=== PATIENT | female | born 1990 | race Caucasian/White ===

== ENCOUNTER → 2019-06-21 10:08 | Outpatient (CLI) | payer OTHER, SELFPAY ==
--- NOTE | 2019-06-21 | DI.US.S_ITS ---
PROCEDURE: US OB >= 14 WEEKS FETUS INDICATIONS: ANATOMY OUTSIDE/PRIOR DATING DATA: Last menstrual period (LMP): 01/21/19. LMP-based estimated date of delivery (CHIKI): 10/23/19. First dating scan (date and location): 06/21/19. Estimated date of delivery (CHIKI) from first dating scan: 10/25/19. TECHNIQUE: Real-time scanning was performed of the fetus, with image documentation and biometric measurements. Endovaginal scanning: No COMPARISON: None. FINDINGS: General: A single living intrauterine gestation is present. Presentation: Vertex. Placenta: Placental position is posterior, without previa. Amniotic fluid index: 13.0 cm, normal range is 5-24 cm. heart rate: 147 beats per minute. Maternal cervical canal: 3.6 cm long. Normal lower limit is 2.5 cm. biometrics: Biparietal diameter: 22 weeks Head circumference: 22 weeks Abdominal circumference: 21 weeks 3 days Femur length: 22 weeks 4 days Estimated gestational age from initial scan: not applicable. Composite gestational age from present scan: 22 weeks 0 days Estimated weight and percentile: 464 g; 65th percentile Measurement variability for biometric dating: +/- 7 days from 14 weeks to 15 weeks 6 days gestation, +/- 10 days from 16 weeks to 21 weeks 6 days gestation, +/- 2 weeks from 22 weeks to 27 weeks 6 days gestation, +/- 3 weeks for 28 weeks gestation or later. weight reference: 4500 g or EFW >90/95% is considered macrosomia or large for gestational age. EFW <10% is small for gestational age. EFW 5% or less is considered intra-uterine growth restriction. Anatomic survey: Neuro: Ventricles are non-dilated at less than 10 mm. Cisterna magna is normal at 3-11 mm. Cerebellum is normal in size and morphology. Nuchal skin fold: Normal at less than 6 mm between 14-21 weeks gestational age. Face: Nose and lips, facial profile are normal. Spine: No evidence for spina bifida. Heart: 4-chambered heart is present, with normal ventricular outflow tracts. Diaphragm: Diaphragm is intact. Stomach: Left-sided stomach is present. Kidneys: No hydronephrosis. Normal is less than 5 mm in 2nd trimester, less than 7 mm in 3rd trimester. Cord: 3-vessel cord has orthotopic insertion. Bladder: Normal in size. Extremities: All 4 extremities identified. IMPRESSION: 1. [place] living intrauterine at 22 weeks 0/7 days based on today's ultrasound. This is concordant with the LMP. 2. Normal placenta and amniotic fluid. 3. Normal and complete anatomic survey. Dictated by: Brian GARCIA Interpreted: Nazario Fay MD on 06/21/2019 at 13:13 Approved by: Nazario Fay M.D. on 06/21/2019 at 15:21
== END ==
PROVIDERS: Visit Provider Nurse Practitioner Obstetrics & Gynecology
DX: Z36.89 Encounter for other specified antenatal screening (principal); Z3A.22 22 weeks gestation of pregnancy
CPT/HCPCS: 76811

== ENCOUNTER → 2019-08-02 07:45 | Outpatient (CLI) | payer OTHER, SELFPAY ==
[2019-08-02 08:51] LABS: Hematocrit 38.3 % (36-46); Hemoglobin 13.6 g/dL (12.0-16.0); Mean Corpuscular HGB Conc 35.4 % (30-36); Mean Corpuscular Hemoglobin 32.7 PG (26-34); Mean Corpuscular Volume 92.5 fL (80-100); Platelet Count 242 X10^3/uL (150-400); Red Blood Cell Count 4.14 X10^6/uL (4.0-5.2); Red Cell Distribution Width 12.3 % (11.6-14.8); White Blood Cell Count 7.3 X10^3/uL (4.5-11.0)
[2019-08-02 09:18] LABS: Glucose Fasting 81 mg/dL (70-100)
[2019-08-02 11:20] LABS: Glucose 1 Hour 99 mg/dL (70-170)
[2019-08-02 11:21] LABS: Glucose 2 Hour 91 mg/dL (70-140); Glucose Tol Interpretation INTERPRETATION
== END ==
PROVIDERS: Visit Provider Nurse Practitioner Obstetrics & Gynecology
DX: Z13.1 Encounter for screening for diabetes mellitus (principal); Z34.02 Encounter for supervision of normal first pregnancy, second trimester
CPT/HCPCS: 36415; 82951; 82952; 85027

== ENCOUNTER 2019-09-30 06:41 | Outpatient (CLI) | payer OTHER, SELFPAY ==
[2019-09-30] MEDS: TERBUTALINE 1 MG/ML VIAL SUBCUT (07:30)
--- NOTE | 2019-09-30 11:36 | PM.PROC.1 ---
Procedures Date/Time Date of procedure: 09/30/19 Time of procedure: 07:45 General Procedure description: Patient is a G1 with known breech presentation at 36 weeks here for external cephalic version. NST was reactive. Consent form was signed with the risks of rupture of membranes, abruption of placenta, distress that could require urgent section, onset of labor. Ultrasound shows the in breech presentation with posterior placenta and adequate fluid. Patient received 0.25 mg subcu terbutaline. Attempt was made 3 times to turn the baby for about 30 seconds each time with monitoring of the heart rate was normal in between each attempt. After the failed attempts NST was performed for an hour and was normal. Patient was discharged home. Precautions reviewed with the patient to call if she has bleeding, abdominal pain, decreased movement, rupture membranes, onset of labor. She will be scheduled for a primary section. Complications: none
== END 2019-09-30 08:30 | disposition home or self-care (01) ==
LOC: LABOR 08:50 → OB 13:25
PROVIDERS: Referring Provider Nurse Practitioner Obstetrics & Gynecology; Visit Provider Nurse Practitioner Obstetrics & Gynecology
DX: O32.1XX0 Maternal care for breech presentation, not applicable or unspecified (principal); Z3A.36 36 weeks gestation of pregnancy
CPT/HCPCS: 59025; 59412; 96372; G0378; G0379

== ENCOUNTER 2019-10-07 09:42 | Outpatient (CLI) | payer OTHER, SELFPAY ==
[2019-10-07 10:15] LABS: Add Manual Diff / Slide Review NO; Basophils Absolute Auto 100 /uL (0-100); Basophils Percent Auto 0.8 % (0-2); Eosinophils Absolute Auto 200 /uL (0-450); Eosinophils Percent Auto 3.3 % (2-4); Hematocrit 41.1 % (36-46); Hemoglobin 14.4 g/dL (12.0-16.0); Lymphocytes Absolute Auto 1500 /uL (1100-4500); Lymphocytes Percent Auto 19.7 % (25-40); Mean Corpuscular Hemoglobin 32.5 PG (26-34); Mean Corpuscular Volume 92.6 fL (80-100); Monocytes Absolute Auto 500 /uL (0-900); Monocytes Percent Auto 6.7 % (3-14); Neutrophils Absolute Auto 5100 /uL (1500-7000); Neutrophils Percent Auto 69.5 % (50-75); Platelet Count 228 X10^3/uL (150-400); Red Blood Cell Count 4.44 X10^6/uL (4.0-5.2); Red Cell Distribution Width 12.8 % (11.6-14.8); White Blood Cell Count 7.4 X10^3/uL (4.5-11.0)
[2019-10-07 10:27] LABS: Aspartate Aminotransferase 26 IU/L (14-36); Blood Urea Nitrogen 9 mg/dL (7-17); Estimated Glomerular Filt Rate > 60.0 mL/min (>60); Uric Acid 3.8 mg/dL (2.5-6.2)
[2019-10-07 10:47] LABS: Creatinine Urine Random 21.7 mg/dL; Protein (Total) Urine Random 14 mg/dL (0-12); Protein Creatinine Ratio Urine 0.64 GRAM/24H
--- NOTE | 2019-10-07 11:27 | PM.OBTRLD ---
Visit Information Visit Information Date of evaluation: 10/07/19 Primary OB Provider: Lisy Pineda On-call OB Provider: Betty Higgins Comments/Additional reasons for admission: 29 YO @ 37wks based on LMP and early US w/ breech presentation and PCS scheduled 10/24/19. Here for evaluation of elevated BP in clinic (140's/80's-90's) at routine OB appointment. Vital Signs Vital Signs: BP 126/82, HR110, T36.9C Temporal PFSH Surgical History (Updated 12/19/17 @ 05:05 by Conversion Provider) History of third molar tooth extraction Family History (Updated 09/23/17 @ 00:00 by Conversion Provider) Grandmother Age: 84 Bone loss Mother Age: 60 High cholesterol Mental health problem Social History (Updated 10/07/19 @ 11:32 by Lisy Pineda CNM) marital status: household members: spouse lives independently: Yes housing: house pets and animals: Yes occupational status: employed Review of Systems Review of Systems Narrative: NO PINO, vision changes, RUQ pain or increased edema ROS: Yes All systems reviewed with the patient and are negative except as otherwise documented Exam Vital Signs (past 8 hours): Serial BPs 126/82, 138/83, 130/83, HR 110-114, T36.9C Uterus Location (Fundal Height): 34 Presentation: ashok breech Neuro General: alert, awake and oriented x3 DTR's: Rt Patellar: 2+ and Lt Patellar: 2+ Objective Labs Result Diagrams: 10/07/19 10:04 10/07/19 10:04 Labs: Laboratory Results - last 24 hr 10/07/19 10/07/19 10/07/19 09:55 10:04 10:04 WBC 7.4 RBC 4.44 Hgb 14.4 Hct 41.1 MCV 92.6 MCH 32.5 MCHC 35.0 RDW 12.8 Plt Count 228 Neut % (Auto) 69.5 Lymph % (Auto) 19.7 L [place] % (Auto) 6.7 Eos % (Auto) 3.3 Baso % (Auto) 0.8 Neut # (Auto) 5100 Lymph # (Auto) 1500 [place] # (Auto) 500 Eos # (Auto) 200 Baso # (Auto) 100 BUN 9 Creatinine 0.50 L Estimated GFR > 60.0 BUN/Creatinine Ratio 18.0 Uric Acid 3.8 AST 26 U Random Total Protein 14 H Urine Creatinine 21.7 Protein/Creatinin Ratio 0.64 Evaluation Evaluation Baseline heart rate: 145 Variability: Moderate (11-25) monitor accelerations: Present monitor decelerations: Absent Contraction Frequency (minutes): 0 Category of Tracing: I Laboratory results: Laboratory Tests 10/07/19 10/07/19 10/07/19 09:55 10:04 10:04 WBC 7.4 RBC 4.44 Hgb 14.4 Hct 41.1 MCV 92.6 MCH 32.5 MCHC 35.0 RDW 12.8 Plt Count 228 Neut % (Auto) 69.5 Lymph % (Auto) 19.7 L [place] % (Auto) 6.7 Eos % (Auto) 3.3 Baso % (Auto) 0.8 Neut # (Auto) 5100 Lymph # (Auto) 1500 [place] # (Auto) 500 Eos # (Auto) 200 Baso # (Auto) 100 BUN 9 Creatinine 0.50 L Estimated GFR > 60.0 BUN/Creatinine Ratio 18.0 Uric Acid 3.8 AST 26 U Random Total Protein 14 H Urine Creatinine 21.7 Protein/Creatinin Ratio 0.64 Comments: Reactive NST Diagnosis, Plan/Disposition Final Diagnosis (1) Proteinuria affecting in third trimester: Current Visit: No Status: Acute Problem details: Given normal serial BPs and remaining preeclampsia labs, recommend 24 hour urine protein to evaluate baseline proteinuria. Pt given supplies and instructions for 24 hour urine collection. Recommend repeat BP check in 3-4 days. RTC as previously scheduled. Reviewed labor sx, warning sx and when to call. Discharge to home.
== END 2019-10-07 11:33 | disposition home or self-care (01) ==
LOC: LABOR 11:02 → OB 10-24 11:43
PROVIDERS: PCP Nurse Practitioner Obstetrics & Gynecology; Referring Provider Nurse Practitioner Obstetrics & Gynecology; Visit Provider Nurse Practitioner Obstetrics & Gynecology
DX: O12.13 Gestational proteinuria, third trimester (principal); Z11.2 Encounter for screening for other bacterial diseases; O32.1XX0 Maternal care for breech presentation, not applicable or unspecified; Z3A.37 37 weeks gestation of pregnancy
CPT/HCPCS: 36415; 59025; 82570; 84156; 84450; 84550; 85025; 87081; G0378; G0379

== ENCOUNTER → 2019-10-07 12:28 | Outpatient (ROUT) | payer OTHER, SELFPAY | PROVIDERS: PCP Nurse Practitioner Obstetrics & Gynecology; Visit Provider Nurse Practitioner Obstetrics & Gynecology | DX: Z11.2 Encounter for screening for other bacterial diseases (principal) | CPT/HCPCS: 87081 ==

== ENCOUNTER → 2019-10-14 14:25 | Outpatient (CLI) | payer OTHER, SELFPAY ==
--- NOTE | 2019-10-14 14:54 | PM.OBTRLD ---
Visit Information Visit Information Date of evaluation: 10/14/19 Primary OB Provider: Lisy Pineda On-call OB Provider: Aranza Mcknight Comments/Additional reasons for admission: 29YO @ 38wks by LMP and early US presents for BP evaluation after elevated BPs of 150's/90's in clinic. Persistent breech lie w/ PC/S for breech scheduled 10/24/19 w/ . +FM and occasional, mild ctx. No VB, LOF, PINO, vision changes, RUQ pain Vital Signs Vital Signs: Initial BP 140/92 PFSH Surgical History History of third molar tooth extraction Family History Grandmother Age: 84 Bone loss Mother Age: 60 High cholesterol Mental health problem Social History marital status: household members: spouse lives independently: Yes housing: house pets and animals: Yes occupational status: employed Review of Systems Review of Systems ROS: Yes All systems reviewed with the patient and are negative except as otherwise documented Exam Vital Signs (past 8 hours): Repeat BP 142/88, HR 108 Objective Labs Result Diagrams: 10/14/19 15:10 10/14/19 15:10 Labs: Pr:CR-0.33 Evaluation Evaluation Baseline heart rate: 140 Variability: Moderate (11-25) monitor accelerations: Present monitor decelerations: Absent Contraction Frequency (minutes): 0 Uterine Contraction Intensity: Mild Category of Tracing: I Laboratory results: CE deferred, not indicated Diagnosis, Plan/Disposition Final Diagnosis (1) Preeclampsia: Current Visit: Yes Status: Acute (2) 38 weeks gestation of : Current Visit: Yes Status: Acute Plan/Disposition Plan: 1500- Consulted and notified her of GHTN w/ repeat labs pending. will discuss options for timing for C/S w/ OR and get back to me. 1505- PS/C for breech w/ GHTN scheduled tomorrow @ 1330, pt to arrive @ 1130. Pt notified by and myself. Informed consent obtained. Given no change in labs fro last week and BPs that trended down during triage, Dx of preeclampsia is made, but pt is stable for discharge to home overnight while awaiting tomorrow. Reviewed warning sx and reasons to come back sooner. Pre-op instructions given. OB Disposition: home
[2019-10-14 15:19] LABS: Add Manual Diff / Slide Review NO; Basophils Absolute Auto 0 /uL (0-100); Basophils Percent Auto 0.5 % (0-2); Eosinophils Absolute Auto 100 /uL (0-450); Hematocrit 39.6 % (36-46); Hemoglobin 13.7 g/dL (12.0-16.0); Lymphocytes Absolute Auto 2000 /uL (1100-4500); Lymphocytes Percent Auto 19.6 % (25-40); Mean Corpuscular HGB Conc 34.6 % (30-36); Mean Corpuscular Hemoglobin 32.1 PG (26-34); Monocytes Absolute Auto 600 /uL (0-900); Monocytes Percent Auto 6.1 % (3-14); Neutrophils Absolute Auto 7300 /uL (1500-7000); Neutrophils Percent Auto 72.8 % (50-75); Platelet Count 220 X10^3/uL (150-400); Red Blood Cell Count 4.26 X10^6/uL (4.0-5.2); Red Cell Distribution Width 12.5 % (11.6-14.8)
[2019-10-14 15:32] LABS: Aspartate Aminotransferase 24 IU/L (14-36); Blood Urea Nitrogen 11 mg/dL (7-17); Estimated Glomerular Filt Rate > 60.0 mL/min (>60); Uric Acid 3.8 mg/dL (2.5-6.2)
[2019-10-14 15:48] LABS: Creatinine Urine Random 42.2 mg/dL; Protein (Total) Urine Random 14 mg/dL (0-12); Protein Creatinine Ratio Urine 0.33 GRAM/24H
[2019-10-15] MEDS: LACTATED RINGERS 1,000 ML 42 ML IV ×2 (13:00→14:20)
[2019-10-15] MEDS: CEFAZOLIN 2 GM/100 ML FROZ.PIGGY IV (13:40)
[2019-10-15 14:38] VITALS: BP 106/66; PULSE 99; RESP 12; TEMP 36.1; O2SAT 100
--- NOTE | 2019-10-15 14:52 | SUR.OPER ---
Supine on Padded OR bed, head on pillow, safety belt at thigh, arms secured on padded arm boards at <90 degrees abduction. Bump under right buttock. Legs uncrossed with pillow under knees, gel pad to heels, tape over blanket to lower legs.
--- NOTE | 2019-10-15 14:53 | SUR.PHASEI ---
Report called to [place].
[2019-10-15 14:55] VITALS: PULSE 99; O2SAT 100
--- NOTE | 2019-10-15 14:56 | SUR.OPER ---
Viable female delivered at 1359. Cord blood and placenta sent with L&D nurse.
== END | disposition home or self-care (01) ==
LOC: LABOR 15:13 → OB 10-15 07:13
PROVIDERS: Specialist; PCP Nurse Practitioner Obstetrics & Gynecology; Referring Provider Nurse Practitioner Obstetrics & Gynecology; Visit Provider Nurse Practitioner Obstetrics & Gynecology
PROC: (CPT 59514; principal; 2019-10-15 13:30)
DX: O14.93 Unspecified pre-eclampsia, third trimester (principal); Z3A.38 38 weeks gestation of pregnancy
CPT/HCPCS: 36415; 59025; 82570; 84156; 84450; 84550; 85025; G0378; G0379

== ENCOUNTER 2019-10-15 11:31 | Inpatient (IN) | payer OTHER, SELFPAY ==
--- NOTE | 2019-10-15 12:41 | PM.OBHP.1 ---
OB HPI Date/Time Date of admission: 10/15/19 Date Patient Seen: 10/15/19 Time Patient Seen: 12:41 History of Present Condition Chief complaint: : 1 Para: 0 Estimated Date of Delivery: 10/28/19 Estimated Gestational Age (weeks): 38 Narrative: Gabbie Benitez is a 29 year old female admitted for primary section for breech presentation and preeclampsia Indications Operative indications ( section): breech presentation History of Present care: good care, initiated at week # (9), number of visits (10) and pounds weight gain (21) Dating criteria: LMP confirmed by 1st trimester US Ultrasounds: normal mid trimester US Obstetrical complications: preeclampsia Medical complications: none Preadmission Labs Blood type: A (+) positive -: Antibody screen: negative, GBS status: negative, HBsAG: negative, HIV: negative and RPR/VDLR: negative -: Chlamydia screen: not detected and Gonorrhea screen: not detected -: Rubella: immune HCAB: negative 1 hr GTT: 99 Evaluation Evaluation Baseline heart rate: 130 Variability: Moderate (11-25) monitor accelerations: Present monitor decelerations: Absent Contraction Frequency (minutes): 0 PFSH Medical History (Updated 10/14/19 @ 15:59 by Lisy Pineda CNM) 37 weeks gestation of (Inactive) Elevated BP without diagnosis of hypertension (Inactive) Surgical History History of third molar tooth extraction Social History marital status: household members: spouse lives independently: Yes housing: house pets and animals: Yes occupational status: employed Meds Home Medications and Allergies Home Medications Medication Instructions Recorded Confirmed Type fluticasone propionate [Flonase 1 spray INTRANASAL QDAY #1 bot 05/04/16 History Allergy Relief] Review of Systems Review of Systems Narrative: No current headaches, scotomata, epigastric pain. Good movement. No rupture membranes. ROS: Yes All systems reviewed with the patient and are negative except as otherwise documented Exam Vital Signs (past 8 hours): Blood pressure 133/78, pulse of 96, temperature 37.1? Narrative Exam Narrative: HEENT exam within normal limits. Lungs are clear to auscultation percussion. Heart is regular rate and rhythm no S3-S4 or murmurs. Abdomen is soft, nontender. Fetus is confirmed breech by ultrasound. Extremities without edema nontender. Assessment and Plan Assessment and Plan Assessment and Plan narrative: 38 week gestation with breech presentation and scheduled primary low-transverse section with mild preeclampsia signs and symptoms.
--- NOTE | 2019-10-15 12:56 | PM.PREOP ---
Pre-operative Note Interval Note History & Physical reviewed/Exam performed by Physician: Yes Changes to H&P: No
[2019-10-15 13:19] LABS: Add Manual Diff / Slide Review NO; Basophils Absolute Auto 0 /uL (0-100); Basophils Percent Auto 0.4 % (0-2); Eosinophils Absolute Auto 100 /uL (0-450); Eosinophils Percent Auto 0.7 % (2-4); Hematocrit 39.8 % (36-46); Hemoglobin 13.7 g/dL (12.0-16.0); Lymphocytes Absolute Auto 1600 /uL (1100-4500); Lymphocytes Percent Auto 15.3 % (25-40); Mean Corpuscular HGB Conc 34.5 % (30-36); Mean Corpuscular Hemoglobin 32.3 PG (26-34); Mean Corpuscular Volume 93.6 fL (80-100); Monocytes Absolute Auto 500 /uL (0-900); Monocytes Percent Auto 5.1 % (3-14); Neutrophils Absolute Auto 8100 /uL (1500-7000); Neutrophils Percent Auto 78.5 % (50-75); Platelet Count 216 X10^3/uL (150-400); Red Blood Cell Count 4.25 X10^6/uL (4.0-5.2); Red Cell Distribution Width 12.7 % (11.6-14.8); White Blood Cell Count 10.3 X10^3/uL (4.5-11.0)
--- NOTE | 2019-10-15 14:40 | PM.OP.1 ---
Operative Date/Time/Diagnoses Date of procedure: 10/15/19 Time of procedure: 14:40 Pre-op diagnosis: 38 week gestation with mild preeclampsia and breech presentation Post-op diagnosis: same Procedure & Clinicians Procedure: Primary low-transverse section Same procedure as scheduled: Yes Indications: Breech presentation with mild preeclampsia Surgeon: Renee Darden [place] Attendant: Nicole Rouse Click Yes if Unassisted: No Anesthesia Type: Spinal Operative Notes Findings: Normal tubes, ovaries, and uterus. Viable female , Apgars of 8, 9. Approximate weight 6 lb 9 oz Closure Type: primary Specimen(s): none sent Applied: catheter (Moon) Estimated Blood Loss (mL): 300 Blood products transfused: none Procedure in detail: The patient was brought to the operating room where she underwent a spinal for anesthesia. She was placed in a supine position with a left lateral tilt. A Moon catheter was placed. Pulsatile stockings were placed and functional throughout the case. 2 g of Ancef were given IV prior to the incision. Warming was in place. The patient was prepped and draped in usual sterile fashion. A low transverse incision was made with a scalpel and the incision was carried down to the fascial layer which was incised transversely with scissors. The midline attachments are superiorly and inferiorly. Some bleeding was controlled Bovie. The rectus muscles were in the midline and the peritoneal incision was made with no damage to internal structures. The peritoneum was incised and superiorly and inferiorly. Bladder blade was placed and a bladder flap was developed and the bladder held away from the lower uterine segment. An incision was made in the uterus with the scalpel and the incision was extended with stretching. The head was elevated out of the abdomen and with fundal pressure the baby was delivered. The was bulb suctioned for clear fluid and handed off to the warmer. Cord blood was collected. The placenta delivered spontaneously with traction. The uterus was cleaned with clean laps. The uterine incision was closed in 2 layers of 0 chromic suture the first a running locking layer the second an imbricating layer. The bladder peritoneum was repaired with 2-0 Polysorb suture. The gutters were cleaned of any remaining fluids and ovaries and tubes were observed to be normal. Adequate hemostasis was noted. The perineum was closed with 2-0 Polysorb suture. The fascia layer was closed with 0 Polysorb suture with 2 stitches. The incision was irrigated and adequate hemostasis noted. The incision was closed with interrupted 3-0 Polysorb sutures and then a subcuticular stitch of 4-0 Polysorb suture. Steri-Strips were placed. The uterus was massaged to remove any clots. The patient went to recovery room in good condition. Counts of instruments and sponges were correct. Complications: none Post-operative Condition: stable Disposition: other ( Center) Plan for aftercare: Routine post section. Monitor for worsening symptoms and signs of preeclampsia.
[2019-10-15] MEDS: LACTATED RINGERS 1,000 ML 100 ML IV (16:43)
[2019-10-15] MEDS: KETOROLAC 30 MG/ML VIAL IV ×2 (16:43→23:43)
[2019-10-15 17:14] VITALS: BP 128/79
[2019-10-16] MEDS: KETOROLAC 30 MG/ML VIAL IV (05:59)
[2019-10-16 07:20] LABS: Hematocrit 38.2 % (36-46); Hemoglobin 13.2 g/dL (12.0-16.0)
--- NOTE | 2019-10-16 09:00 | P.PNOB_ITS ---
Subjective - OB Subjective Patient comments: no complaints [place] baby status: doing well [place] feeding status: exclusively breast feeding Date Patient Seen: 10/16/19 Time Patient Seen: 08:00 Interval history: Patient is postoperative primary low-transverse section. She denies any headaches, scotomata, epigastric pain. She is ambulatory and tolerating regular diet. She is breast-feeding. Exam Vital Signs (past 8 hours): Blood pressure 119/74, pulse of 96, temperature 98.6? Narrative Exam Narrative: Abdomen is soft, nontender. Uterus is firm, U -1, nontender. Dressing is clean, dry, intact. Mild lochia. Extremities without edema and nontender. Objective Labs Result Diagrams: 10/16/19 06:30 Labs: Laboratory Results - last 24 hr 10/15/19 10/15/19 10/16/19 13:00 13:00 06:30 WBC 10.3 RBC 4.25 Hgb 13.7 13.2 Hct 39.8 38.2 MCV 93.6 MCH 32.3 MCHC 34.5 RDW 12.7 Plt Count 216 Neut % (Auto) 78.5 H Lymph % (Auto) 15.3 L [place] % (Auto) 5.1 Eos % (Auto) 0.7 L Baso % (Auto) 0.4 Neut # (Auto) 8100 H Lymph # (Auto) 1600 [place] # (Auto) 500 Eos # (Auto) 100 Baso # (Auto) 0 Blood Type A Positive Antibody Screen Negative Assessment & Plan Assessment and Plan (1) Delivery by section: Status: Acute Current Visit: Yes (2) Preeclampsia: Status: Acute Current Visit: Yes Plan day: 1 plan OB: routine care Comments: Patient is doing well post section day 1. No signs or symptoms of preeclampsia. Continue to monitor for signs and symptoms of preeclampsia. Routine post section care. Time Spent With Patient Time: Total time spent is greater than 50% in coordination of care (as documented) at patient's floor/unit and/or counseling patient: Time with patient: less than 15 minutes
[2019-10-16] MEDS: DOCUSATE 250 MG CAPSULE PO (09:22)
[2019-10-16] MEDS: ACETAMINOPHEN 325 MG TABLET 650 MG PO ×2 (12:38→20:16)
[2019-10-16] MEDS: IBUPROFEN 600 MG TABLET PO (18:58)
[2019-10-17] MEDS: IBUPROFEN 600 MG TABLET PO (03:27)
[2019-10-17] MEDS: ACETAMINOPHEN 325 MG TABLET 650 MG PO (03:28)
--- NOTE | 2019-10-17 07:50 | PM.OBDS.1 ---
Discharge Providers Provider Date of admission: 10/15/19 11:31 Discharge Date: 10/17/19 Primary care physician: Lisy Pineda CNM Consults: 10/15/19 16:30 Consult to Audiovisual Librarian Routine Comment: Discharge provider: Renee Darden MD Summary Hospital Course Date Patient Seen: 10/17/19 Time Patient Seen: 07:51 Procedures: Primary low-transverse section Hospital Course: Patient was admitted for section for breech presentation and mild preeclampsia. She did extremely well post section. Patient denies any headaches, scotomata, epigastric pain. She is urinating and ambulating well. She is passing gas. Her pain is under control. Peripartum Data Delivery Method: Section (Breech presentation) Procedures: Primary low-transverse section complications: none [place] 1: Gender: Female Disposition of : home Discharge Diagnosis (1) Delivery by section: Status: Acute (2) Preeclampsia: Status: Acute Status at Discharge Cognitive/behavioral status at discharge: oriented Functional status at discharge: independent ambulation Overall status at discharge: patient is progressing back to baseline Time Spent with Patient Time attestation: Total time spent providing and/or coordinating discharge services: Time spent: Less than 30 minutes Objective Labs Result Diagrams: 10/16/19 06:30 Exam Vital Signs (past 8 hours): Blood pressure 124/79, pulse of 90, temperature 98.4? Narrative Exam Narrative: Abdomen is soft, nontender. Uterus is firm, at U, nontender. Dressing is clean, dry, intact. Mild lochia. Extremities without edema and nontender. Discharge Plan Discharge Plan Patient Disposition: Home Discharge comment: Call for increasing headaches, scotomata, epigastric pain Discharge orders & Medications Prescriptions: New oxycodone-acetaminophen 5-325 mg Tablet 2 tab PO Q4HR PRN (Reason: Pain, Severe (7-10)) Qty: 20 RF: 0 Continued fluticasone propionate [Flonase Allergy Relief] 9.9 ML spray,suspension 1 spray Intranasal QDAY Qty: 1 RF: 0 Follow up/Referrals: Renee Darden MD [Physician] - 1 Week (Blood pressure and incision check) Lisy Pienda CNM [Primary Care Provider] - Diet/Activity/Treatments Diet: Regular Activity: Nothing in vagina or lifting over 20 lb for 4 weeks Skin/Wound/Dressing Care Report to your healthcare provider any signs of infection, such as:: chills, fever, increased pain and unusual redness Dressing: Leave dressing on until 1 week postop Discharge Data Primary Care Provider: Lisy Pineda
[2019-10-17 09:36] VITALS: BP 115/76; PULSE 80; RESP 18; TEMP 36.5
== END 2019-10-17 13:00 | disposition home or self-care (01) | DRG 788 ==
PROVIDERS: Admitting Provider Specialist; PCP Nurse Practitioner Obstetrics & Gynecology; Referring Provider Specialist; Visit Provider Specialist
DX: O32.1XX0 Maternal care for breech presentation, not applicable or unspecified (principal); Z3A.38 38 weeks gestation of pregnancy; Z37.0 Single live birth; O14.04 Mild to moderate pre-eclampsia, complicating childbirth
CPT/HCPCS: 36415; 59025; 59050; 59514; 82570; 84156; 84450; 84550; 85014; 85018; 85025; 86850; 86900; 86901; J0690; J1885; J2274; J2590

== ENCOUNTER → 2022-11-08 16:14 | Outpatient (CLI) | payer OTHER, SELFPAY ==
--- NOTE | 2022-11-08 | DI.US.S_ITS ---
PROCEDURE: US OB >= 14 WEEKS FETUS INDICATIONS: 20 WEEK ANATOMY OUTSIDE/PRIOR DATING DATA: Last menstrual period (LMP): 06/15/2022 LMP-based estimated date of delivery (CHIKI): 03/22/2023 First dating scan (date and location): Not applicable Estimated date of delivery (CHIKI) from first dating scan: Not applicable The calculations are made using the working CHIKI of 03/22/2023. TECHNIQUE: Real-time scanning was performed of the fetus, with image documentation and biometric measurements. Endovaginal scanning: Not indicated COMPARISON: [facility], OB >= 14 WEEKS FETUS, 06/21/2019, 10:27. FINDINGS: General: A single living intrauterine gestation is present. Presentation: Variable Placenta: Placental position is anterior, without previa. Amniotic fluid index: 17.4 cm, normal range is 5-24 cm. Single deepest vertical pocket is 5.8 cm. heart rate: 139 beats per minute. Maternal cervical canal: 4.9 cm long. Normal lower limit is 2.5 cm. biometrics: Biparietal diameter: 4.8 cm, 20 weeks, 3 days. Head circumference: 18.7 cm, 21 weeks, 0 day. Abdominal circumference: 16.4 cm, 21 weeks, 3 days. Femur length: 3.4 cm, 20 weeks, 4 days. Clinically estimated gestational age: 20 weeks, 6 days. Composite gestational age from present scan: 20 weeks, 6 days. Estimated weight and percentile: 394 grams, 54 percent. Anatomic survey: Neuro: Ventricles are non-dilated at less than 10 mm. Cisterna magna is normal at 3-11 mm. Cerebellum is normal in size and morphology. Nuchal skin fold: Normal at less than 6 mm between 14-21 weeks gestational age. Face: Nose and lips, facial profile are normal. Spine: No evidence for spina bifida. Heart: 4-chambered heart is present, with normal ventricular outflow tracts. Diaphragm: Diaphragm is intact. Stomach: Left-sided stomach is present. Kidneys: No hydronephrosis. Normal is less than 5 mm in 2nd trimester, less than 7 mm in 3rd trimester. Cord: 3-vessel cord has orthotopic insertion. Bladder: Normal in size. Extremities: All 4 extremities identified. IMPRESSION: 1. Single live intrauterine gestation with fetus in variable presentation. heart rate is 139 beats per minute. Normal amount of amniotic fluid. Normal growth. Estimated weight is at 54 percent. 2. Normal anatomic survey. We strive to produce accurate, complete, and clear reports of imaging services. To assist us in improving patient care, this report was composed using standard report templates and voice recognition software. Therefore, it may contain abnormal punctuation, insertions and/or omissions. Occasional wrong-word or sound-alike substitutions may occur. Though we review the report and make efforts to correct it, we do recommend that the report be read carefully in proper context to recognize any text inaccuracies. Dictated by: Fabio Borja M.D. on 11/08/2022 at 17:48 Approved by: Fabio Borja M.D. on 11/08/2022 at 17:50
== END ==
PROVIDERS: PCP Nurse Practitioner Obstetrics & Gynecology; Referring Provider Advanced Practice Midwife; Visit Provider Advanced Practice Midwife
DX: Z36.1 Encounter for antenatal screening for raised alphafetoprotein level (principal); O09.92 Supervision of high risk pregnancy, unspecified, second trimester; O09.212 Supervision of pregnancy with history of pre-term labor, second trimester; Z3A.20 20 weeks gestation of pregnancy
CPT/HCPCS: 76811

== ENCOUNTER 2024-08-05 14:36 | Observation (INO) | payer OTHER, SELFPAY ==
[2024-08-05] VITALS (15 sets, daily range): BP systolic 120–159; BP diastolic 57–84; PULSE 76–94; RESP 14–37; TEMP 36.4–36.5; O2SAT 95–100; BMI 41.0
[2024-08-05 15:33] LABS: Add Manual Diff / Slide Review NO; Basophils Absolute Auto 100 /uL (0-100); Basophils Percent Auto 0.8 % (0-2); Eosinophils Absolute Auto 100 /uL (0-450); Eosinophils Percent Auto 0.4 % (2-4); Hemoglobin 13.8 g/dL (12.0-16.0); Lymphocytes Absolute Auto 1900 /uL (1100-4500); Lymphocytes Percent Auto 14.4 % (25-40); Mean Corpuscular HGB Conc 33.7 % (30-36); Mean Corpuscular Hemoglobin 30.1 PG (26-34); Mean Corpuscular Volume 89.3 fL (80-100); Monocytes Absolute Auto 500 /uL (0-900); Neutrophils Absolute Auto 10600 /uL (1500-7000); Neutrophils Percent Auto 80.4 % (50-75); Platelet Count 323 X10^3/uL (150-400); Red Blood Cell Count 4.59 X10^6/uL (4.0-5.2); Red Cell Distribution Width 13.1 % (11.6-14.8); White Blood Cell Count 13.1 X10^3/uL (4.5-11.0)
[2024-08-05 15:52] LABS: Alanine Aminotransferase 38 IU/L (<35); Albumin 4.5 g/dL (3.5-5.0); Albumin Globulin Ratio 1.2 (1.0-2.8); Alkaline Phosphatase 72 U/L (38-126); Aspartate Aminotransferase 39 IU/L (14-36); BUN Creatinine Ratio 15.8 (6-22); Bilirubin Total 0.7 mg/dL (0.2-1.3); Blood Urea Nitrogen 9 mg/dL (7-17); Calcium 9.3 mg/dL (8.4-10.2); Carbon Dioxide 24 mmol/L (22-32); Chloride 104 mmol/L (98-107); Estimated Glomerular Filt Rate > 60 mL/min (>60); Globulin 3.7 g/dL (1.7-4.1); Glucose 117 mg/dL (70-100); HEMOLYSIS 15 (0-50); Lipase 60 U/L (23-300); Potassium 3.7 mmol/L (3.4-5.1); Sodium 136 mmol/L (137-145); Total Protein 8.2 g/dL (6.3-8.2)
[2024-08-05 16:15] LABS: Urine Volume 10mL (spun)
[2024-08-05 16:16] LABS: Bacteria Urine None Seen; Culture Indicated Urine Cult Not Indicated; Mucus Urine 1+ (Negative); RBC Urine 5-10/HPF (0-5/HPF); Squamous Epithelial Cell Urine None Seen (0-5/HPF); WBC Urine None Seen (0-5/HPF)
--- NOTE | 2024-08-05 18:31 | DI.CT.S_ITS ---
PROCEDURE: CT ABDOMEN PELVIS W CON INDICATIONS: Right-sided abdominal pain eval for appy TECHNIQUE: After the administration of intravenous contrast, axial sections acquired from the lung bases to the pubic symphysis. Coronal and sagittal reformats were performed. For radiation dose reduction, the following was used: automated exposure control, adjustment of mA and/or kV according to patient size. COMPARISON: None. FINDINGS: Image quality: Diagnostic. Lower Chest: No significant findings. ABDOMEN: Liver: No solid mass. Gallbladder: The gallbladder is distended, with a focally thickened wall. There is a stone at the neck of the gallbladder. Biliary ducts: No biliary dilation. Pancreas: No ductal dilation. Spleen: Size is within normal limits. Adrenal Glands: No adrenal nodules. Kidneys and Ureters: No hydronephrosis. No solid mass. No complex renal cystic lesion which requires follow up. Stomach and Bowel: Normal colonic caliber, without significant wall thickening. Normal appendix. Peritoneum: No abnormal intraperitoneal fluid. No free air. Ventral Wall: No significant ventral hernia. Small umbilical hernia containing fat. Abdominal Nodes: No retroperitoneal or mesenteric adenopathy by size criteria. Vessels: Aorta and inferior vena cava are normal in size. PELVIS: Pelvic Organs: Unremarkable. Bladder: No bladder wall thickening, accounting for underdistention. Pelvic Nodes: No enlarged lymph nodes. Miscellaneous: No inguinal hernias are seen. Bones: No aggressive osseous abnormality. IMPRESSION: The gallbladder is distended, with a focally thickened wall. There is a stone at the gallbladder neck. Findings are concerning for acute cholecystitis. Recommend surgical consultation. Normal appendix. Dictated by: Kris Ricardo M.D. on 08/05/2024 at 20:06 Approved by: Kris Ricardo M.D. on 08/05/2024 at 20:07
--- NOTE | 2024-08-05 18:31 | ED.GENADULT ---
HPI - General Adult General Chief complaint: Abdominal Pain Stated complaint: Bad middle stomach pain Time Seen by Provider: 08/05/24 17:57 Source: patient Mode of arrival: Ambulatory History of Present Illness HPI narrative: 33-year-old female who is here for evaluation of just under 24 hours of right-sided abdominal pain. States it does radiate to her back. Did have some loose stools which did not change her abdominal pain. Has urinated without issue and that did not change her abdominal pain either. No vaginal bleeding. Has had C-sections but no other abdominal surgeries. Some nausea but no vomiting. No fevers. Has not tried anything for the symptoms prior to arrival. It was worse with palpation. Not changed with eating. Related Data Home Medications Medication Instructions Recorded Confirmed fluticasone propionate 50 1 spray intranasal QDAY ##1 05/04/16 08/05/24 mcg/actuation nasal spray,suspension (Flonase Allergy Relief) levonorgestrel 0.15 mg-ethinyl 1 tab PO DAILY 08/05/24 08/05/24 estradiol 0.03 mg tablet (Altavera (28)) sertraline 100 mg tablet 100 mg PO BID 08/05/24 08/05/24 Allergies Allergy/AdvReac Type Severity Reaction Status Date / Time No Known Drug Allergies Allergy Verified 08/05/24 14:45 Review of Systems Review of Systems ROS Unobtainable: All systems reviewed & are unremarkable except as noted in HPI and below Patient History Medical History Depression Acute cholecystitis due to biliary calculus Preeclampsia Elevated BP without diagnosis of hypertension Surgical History History of third molar tooth extraction Family History Grandmother Age: 88 Bone loss Mother Age: 64 High cholesterol Mental health problem Social History marital status: household members: spouse lives independently: Yes housing: house pets and animals: Yes occupational status: employed Smoking Status: Never smoker alcohol intake: current Smoking Status: Never smoker Exam Initial Vital Signs Initial Vital Signs: Vital Signs Temperature 97.6 F 08/05/24 14:45 Pulse Rate 78 08/05/24 14:45 Respiratory Rate 17 08/05/24 14:45 Blood Pressure 137/82 08/05/24 14:45 Pulse Oximetry 99 08/05/24 14:45 Oxygen Delivery Method Room Air 08/05/24 14:45 Const General: cooperative, comfortable and No ill appearing [facility] Head: normal to inspection and normocephalic Resp Effort & Inspection: normal respiratory effort Auscultation: clear to auscultation bilaterally Cardio Rate: regular rate Rhythm: regular rhythm GI Inspection: normal to inspection and non-distended Palpation: No firm, No guarding and tender Skin General: no rashes or lesions noted Neuro General: patient alert, patient awake and moves all extremities Course Orders Ordered: ED Orders 08/05/24 18:31 CT abdomen pelvis w con Stat 08/05/24 20:23 Consult to General Surgery Stat Acetaminophen (Acetaminophen 325 Mg Tablet) 650 mg PO Q6H [facility] Last Admin: 08/05/24 22:32 Dose: 650 mg Documented By: WB Lactated Ringer's (Lactated Ringers) 1,000 mls @ 21 mls/hr IV CONT [facility] Last Admin: 08/05/24 22:36 Dose: 21 mls/hr Documented By: WB Ibuprofen (Ibuprofen 400 Mg Tablet) 800 mg PO Q8HR [facility] Last Admin: 08/05/24 22:32 Dose: 800 mg Documented By: WB Morphine Sulfate (Morphine 2 Mg/Ml Inj) 2 mg IV Q4HR PRN PRN Reason: Pain, Moderate (4-6) Ondansetron HCl (Ondansetron 4 Mg/2 Ml Inj) 4 mg IV NOW PRN PRN Reason: Nausea And Vomiting Ondansetron HCl (Ondansetron 4 Mg Odt) 4 mg PO NOW PRN PRN Reason: Nausea And Vomiting Ondansetron HCl (Ondansetron 4 Mg/2 Ml Inj) 4 mg IV Q6HR PRN PRN Reason: Nausea And Vomiting Sertraline HCl (Sertraline 50 Mg Tablet) 200 mg PO BEDTIME [facility] Last Admin: 08/05/24 22:33 Dose: 100 mg Documented By: WB Tizanidine HCl (Tizanidine 4 Mg Tablet) 4 mg PO BEDTIME [facility] Last Admin: 08/05/24 22:33 Dose: 4 mg Documented By: WB Discontinued Medications Piperacillin Sod/Tazobactam (Sod 4.5 gm/ Sodium Chloride) 100 mls @ 200 mls/hr IV NOW ONE Stop: 08/05/24 20:24 Last Infusion: 08/05/24 21:12 Dose: Infused Documented By: Admin: 08/05/24 20:34 Dose: 200 mls/hr Documented By: Cefazolin Sodium/Dextrose (Ancef) 100 mls @ 200 mls/hr IV NOW ONE Stop: 08/05/24 21:27 Last Infusion: 08/05/24 22:25 Dose: Infused Documented By: Infusion: 08/05/24 22:17 Dose: 200 mls/hr Documented By: Admin: 08/05/24 21:53 Dose: 200 mls/hr Documented By: ANDREEA Ketorolac Tromethamine (Ketorolac 30 Mg/Ml Vial) 15 mg IV NOW ONE Stop: 08/05/24 18:32 Last Admin: 08/05/24 18:40 Dose: 15 mg Documented By: Vital Signs Vital signs: Vital Signs - 8 hr 08/05/24 17:45 08/05/24 17:47 08/05/24 17:47 Pulse Rate 88 80 Respiratory Rate 14 Blood Pressure 159/73 H Pulse Oximetry 99 99 08/05/24 18:00 08/05/24 18:00 08/05/24 18:43 Pulse Rate 80 80 Respiratory Rate 16 20 Blood Pressure 157/84 H Pulse Oximetry 100 99 08/05/24 18:44 08/05/24 18:44 08/05/24 19:06 Pulse Rate 80 89 Respiratory Rate 18 24 Blood Pressure 143/75 H Pulse Oximetry 100 95 08/05/24 19:30 08/05/24 20:00 08/05/24 20:30 Pulse Rate 85 84 88 Respiratory Rate 27 H 21 37 H Blood Pressure Pulse Oximetry 97 97 97 Medical Decision Making Medical Records Medical records reviewed: Yes I reviewed the patient's medical records. Lab Data Lab results reviewed: Yes I reviewed the patient's lab results. 08/05/24 15:18 08/05/24 15:18 Labs: Lab Results 08/05/24 Range/Units 15:18 WBC 13.1 H (4.5-11.0) X10^3/uL RBC 4.59 (4.0-5.2) X10^6/uL Hgb 13.8 (12.0-16.0) g/dL Hct 41.0 (36-46) % MCV 89.3 (80-100) fL MCH 30.1 (26-34) PG MCHC 33.7 (30-36) % RDW 13.1 (11.6-14.8) % Plt Count 323 (150-400) X10^3/uL Neut % (Auto) 80.4 H (50-75) % Lymph % (Auto) 14.4 L (25-40) % [place] % (Auto) 4.0 (3-14) % Eos % (Auto) 0.4 L (2-4) % Baso % (Auto) 0.8 (0-2) % Neut # (Auto) 17272 H (7191-0499) /uL Lymph # (Auto) 1900 (8247-0956) /uL [place] # (Auto) 500 (0-900) /uL Eos # (Auto) 100 (0-450) /uL Baso # (Auto) 100 (0-100) /uL Sodium 136 L (137-145) mmol/L Potassium 3.7 (3.4-5.1) mmol/L Chloride 104 (98-107) mmol/L Carbon Dioxide 24 (22-32) mmol/L BUN 9 (7-17) mg/dL Creatinine 0.57 (0.52-1.04) mg/dL Estimated GFR > 60 (>60) mL/min BUN/Creatinine Ratio 15.8 (6-22) Glucose 117 H (70-100) mg/dL Calcium 9.3 (8.4-10.2) mg/dL Total Bilirubin 0.7 (0.2-1.3) mg/dL AST 39 H (14-36) IU/L ALT 38 H (<35) IU/L Alkaline Phosphatase 72 (38-126) U/L Total Protein 8.2 (6.3-8.2) g/dL Albumin 4.5 (3.5-5.0) g/dL Globulin 3.7 (1.7-4.1) g/dL Albumin/Globulin Ratio 1.2 (1.0-2.8) Lipase 60 (23-300) U/L Urine RBC 5-10/hpf H (0-5/HPF) Urine WBC None seen (0-5/HPF) Ur Squamous Epith Cells None seen (0-5/HPF) Urine Bacteria None seen (None) Urine Mucus 1+ H (Negative) Ur Culture Indicated? Cult not indicated Vol Urine Centrifuged 10ml (spun) Point of Care Testing Test Results Negative Urine Dip Bedside Urine Glucose Negative Bedside Urine Bilirubin - Negative Bedside Urine Ketone ++ 40 Urine Specific [place] 1.010 Bedside Urine Occult Blood ++ Bedside Urine pH 6.5 Bedside Urine Protein + 30 Bedside Urine Urobilinogen - Negative Bedside Urine Nitrite - Negative Bedside Urine Leukocytes - Negative Esterase Point of care testing: Point of Care Testing Test Results Negative Urine Dip Bedside Urine Glucose Negative Bedside Urine Bilirubin - Negative Bedside Urine Ketone ++ 40 Urine Specific [place] 1.010 Bedside Urine Occult Blood ++ Bedside Urine pH 6.5 Bedside Urine Protein + 30 Bedside Urine Urobilinogen - Negative Bedside Urine Nitrite - Negative Bedside Urine Leukocytes - Negative Esterase Imaging Data CT scan - abdomen/pelvis: Radiologist's Impression: PROCEDURE:? CT ABDOMEN PELVIS W CON ? INDICATIONS:? Right-sided abdominal pain eval for appy ? TECHNIQUE:?? After the administration of intravenous contrast, axial sections acquired from the lung? bases to the pubic symphysis.? Coronal and sagittal reformats were performed.? For? radiation dose reduction, the following was used:? automated exposure control, adjustment? of mA and/or kV according to patient size.?? ? COMPARISON:? None. ? FINDINGS:?? Image quality:? Diagnostic.?? ? Lower Chest: No significant findings. ? ABDOMEN: Liver: No solid mass.? Gallbladder:? The gallbladder is distended, with a focally thickened wall.? There is a? stone at the neck of the gallbladder.?? Biliary ducts:? No biliary dilation.? Pancreas:? No ductal dilation.? Spleen:? Size is within normal limits.? Adrenal Glands:? No adrenal nodules.? Kidneys and Ureters:? No hydronephrosis. No solid mass. No complex renal cystic lesion? which requires follow up. ? Stomach and Bowel:? Normal colonic caliber, without significant wall thickening.? Normal? appendix. Peritoneum:? No abnormal intraperitoneal fluid.? No free air.? ? Ventral Wall:? ?No significant ventral hernia. Small umbilical hernia containing fat. Abdominal Nodes:? No retroperitoneal or mesenteric adenopathy by size criteria.? Vessels:? Aorta and inferior vena cava are normal in size.? ? PELVIS: Pelvic Organs:? Unremarkable.? Bladder:? No bladder wall thickening, accounting for underdistention.? Pelvic Nodes: No enlarged lymph nodes.? Miscellaneous: No inguinal hernias are seen.? ? Bones:? No aggressive osseous abnormality.? IMPRESSION:?? ? The gallbladder is distended, with a focally thickened wall.? There is a stone at the? gallbladder neck.? Findings are concerning for acute cholecystitis.? Recommend surgical? consultation. ? Normal appendix.?? MDM Narrative Medical decision making narrative: Patient had more generalized abdominal discomfort which is why started with a CT scan. She does have a slight elevation in her LFTs but bilirubin is unremarkable. Has a slight leukocytosis as well. CT scan concerning for an acute cholecystitis. Discussed the case with Dr. Barton general surgeon on-call who evaluated the patient in the emergency department. Plan will be to admit to the hospital for discussions cholecystectomy. Antibiotics started in the emergency department. Discharge Plan Departure Patient Disposition: Admitted as Observation Clinical Impression: Acute cholecystitis Admit Date/Time: 08/05/24 20:47 Admit Provider: Porter Barton
[2024-08-05] MEDS: KETOROLAC 30 MG/ML VIAL 15 MG IV (18:40)
--- NOTE | 2024-08-05 19:46 | PC.NURSE ---
Pt reports feeling 3/10 pain to abdomen. Smiling and sitting up in gurney.
[2024-08-05] MEDS: PIPERACILLIN/TAZO 4.5 GM in SODIUM CHLORIDE 0.9% 100 ML IV (20:34)
--- NOTE | 2024-08-05 20:51 | P.HP_ITS ---
History of Present Illness History of Present Illness Date Patient Seen: 08/05/24 Time Patient Seen: 20:51 Date of Onset of Symptoms: 08/05/24 Chief complaint: Bad middle stomach pain Narrative: 33 yo WF presents with 12 hours of right upper quadrant pain. Her pain worsened to the point that she needed to take a ferry to the ER. She does not recall any food out of the ordinary that started her pain. She denies jaundice or pancreatitis. She has a leukocytosis, CT scan showing stones and GB wall thickening. Iv pain medication in the ER improved her pain, somewhat. She has a toddler at home and had a . [facility] Medical History (Updated 08/05/24 @ 20:55 by Porter Barton MD) Depression Acute cholecystitis due to biliary calculus Preeclampsia Elevated BP without diagnosis of hypertension Surgical History History of third molar tooth extraction Family History Grandmother Age: 88 Bone loss Mother Age: 64 High cholesterol Mental health problem Social History marital status: household members: spouse lives independently: Yes housing: house pets and animals: Yes occupational status: employed Smoking Status: Never smoker Meds Home Medications and Allergies Home Medications Medication Instructions Recorded Confirmed Type fluticasone propionate 50 1 spray intranasal QDAY ##1 05/04/16 10/25/19 History mcg/actuation nasal spray,suspension (Flonase Allergy Relief) Allergies Allergy/AdvReac Type Severity Reaction Status Date / Time No Known Drug Allergies Allergy Verified 08/05/24 14:45 Review of Systems Review of Systems ROS: Yes All systems reviewed with the patient and are negative except as otherwise documented Constitutional Constitutional: Reports system reviewed and no additional complaints, except as documented Eyes Eyes: Reports system reviewed and no additional complaints, except as documented ENT Ears, Nose, Mouth, and Throat: Yes system reviewed and no additional complaints, except as documented Cardiovascular Cardiovascular: Reports system reviewed and no additional complaints, except as documented Respiratory Respiratory: Reports system reviewed and no additional complaints, except as documented Gastrointestinal Gastrointestinal: Reports abdominal pain, Denies constipation and Denies loose stools Genitourinary Genitourinary: Reports system reviewed and no additional complaints, except as documented Musculoskeletal Musculoskeletal: Reports system reviewed and no additional complaints, except as documented Integumentary/Breasts Skin/Breast: Reports system reviewed and no additional complaints, except as documented Neurologic Neurologic: Reports system reviewed and no additional complaints, except as documented Psychiatric Psychiatric: Reports system reviewed and no additional complaints, except as documented Endocrine Endocrine: Reports system reviewed and no additional complaints, except as documented Hematologic/Lymphatic Hematologic/Lymphatic: Reports system reviewed and no additional complaints, except as documented Allergic/Immunologic Allergic/Immunologic: Reports system reviewed and no additional complaints, except as documented Exam Vital Signs (past 8 hours): - 08/05/24 14:45 08/05/24 17:45 08/05/24 17:47 Temperature 97.6 F Pulse Rate 78 88 Respiratory Rate 17 Blood Pressure 137/82 159/73 H Pulse Oximetry 99 99 Oxygen Delivery Method Room Air 08/05/24 17:47 08/05/24 18:00 08/05/24 18:00 Temperature Pulse Rate 80 80 Respiratory Rate 14 16 Blood Pressure 157/84 H Pulse Oximetry 99 100 Oxygen Delivery Method 08/05/24 18:43 08/05/24 18:44 08/05/24 18:44 Temperature Pulse Rate 80 80 Respiratory Rate 20 18 Blood Pressure 143/75 H Pulse Oximetry 99 100 Oxygen Delivery Method Oxygen Delivery Method Room Air Narrative Exam Narrative: Gen: NAD, sitting comfortably in bed, appears well HEENT: Sclera are anicteric, head is normocephalic and atraumatic, trachea is midline. CV: RRR, no JVD Resp: clear to auscultation bilaterally, equal chest wall movement bilaterally Abd: soft, nontender, normoactive bowel sounds Ext: no edema, full range of motion Neuro: Cranial nerves II-XII grossly intact, no focal deficits Skin: No erythema or ecchymosis Objective Labs 08/05/24 15:18 08/05/24 15:18 Labs: Laboratory Results - last 24 hr 08/05/24 15:18 WBC 13.1 H RBC 4.59 Hgb 13.8 Hct 41.0 MCV 89.3 MCH 30.1 MCHC 33.7 RDW 13.1 Plt Count 323 Neut % (Auto) 80.4 H Lymph % (Auto) 14.4 L [place] % (Auto) 4.0 Eos % (Auto) 0.4 L Baso % (Auto) 0.8 Neut # (Auto) 94077 H Lymph # (Auto) 1900 [place] # (Auto) 500 Eos # (Auto) 100 Baso # (Auto) 100 Sodium 136 L Potassium 3.7 Chloride 104 Carbon Dioxide 24 BUN 9 Creatinine 0.57 Estimated GFR > 60 BUN/Creatinine Ratio 15.8 Glucose 117 H Calcium 9.3 Total Bilirubin 0.7 AST 39 H ALT 38 H Alkaline Phosphatase 72 Total Protein 8.2 Albumin 4.5 Globulin 3.7 Albumin/Globulin Ratio 1.2 Lipase 60 Urine RBC 5-10/hpf H Urine WBC None seen Ur Squamous Epith Cells None seen Urine Bacteria None seen Urine Mucus 1+ H Ur Culture Indicated? Cult not indicated Vol Urine Centrifuged 10ml (spun) Assessment & Plan Assessment and plan (1) Acute cholecystitis due to biliary calculus: Status: Acute (2) Depression: Qualifiers: Depression Type: unspecified Qualified Code(s): F32.A - Depression, unspecified Status: Acute Assessment & Plan narrative: 1. Risks benefits and alternatives to laparoscopic cholecystectomy were explained. Risks of observation including jaundice, pancreatitis, recurrent episodes and need for repeat ER visits were explained. Risks of surgery including, bleeding, infection, bile leak or retained stone requiring ERCP was explained. Patient agrees to proceed with laparoscopic cholecystectomy with cholangiography. Will admit and add-on for the AM. 2. Continue Celexa Time-Based Coding :: [TOTAL MINUTES] spent with patient and on the chart (including review of chart, obtaining history, exam, reviewing outside data, placing orders, documenting exam and treatment plan, and counseling patient) on [DATE]. PROFEE Charge Codes Initial inpatient/observation care: 01413
[2024-08-05] MEDS: CEFAZOLIN 2 GM/100 ML PREMIX 100 ML IV (21:53)
[2024-08-05] MEDS: ACETAMINOPHEN 325 MG TABLET 650 MG PO (22:32)
[2024-08-05] MEDS: IBUPROFEN 400 MG TABLET 800 MG PO (22:32)
[2024-08-05] MEDS: SERTRALINE 50 MG TABLET 200 MG PO (22:33)
[2024-08-05] MEDS: TIZANIDINE 4 MG TABLET PO (22:33)
[2024-08-05] MEDS: LACTATED RINGERS 1,000 ML 21 ML IV (22:36)
[2024-08-06] VITALS (13 sets, daily range): BP systolic 106–145; BP diastolic 60–87; PULSE 76–115; RESP 11–20; TEMP 35.6–37.1; O2SAT 93–99; BMI 41.0
--- NOTE | 2024-08-06 | PATH_ITS ---
[facility] Accession Number: [id number] No. of containers..01 Tissue . 01 Material submitted: . gallbladder - GALLBLADDER AND CONTENTS . 01 Diagnosis: GALLBLADDER AND CONTENTS, CHOLECYSTECTOMY: Cholelithiasis with mild active cholecystitis. No evidence of neoplasm. [facility] 08/08/2024 1141 Local . 01 Electronically signed: . Benjamín Weems MD, PhD, Pathologist NPI- [id number] . 01 Gross description: . Received in formalin with two patient identifiers and gallbladder and contents, is a disrupted gallbladder, 9.2 x 3.4 x 2.6 cm, with a lion, smooth external surface and a defect near the cystic duct, 1.2 cm in greatest dimension. The cystic duct margin is inked blue, and no pericystic lymph node is identified. A yellow bosselated calculus is found within the container, 0.7 cm in greatest dimension. No bile is identified within the lumen. The mucosa is brown and velvety with yellow areas of discoloration and no polyps or lesions identified. The steel average 0.2 cm thick, and field service representative sections to include the cystic duct margin and full thickness sections are submitted in A1. ([id number]) /MRV 08/07/20242026 Local . 01 Pathologist provided ICD-10: K80.60, K81.0 . 01 CPT . 619319 Specimen Comment: A courtesy copy of this report has been sent to [facility] Pathology Performed at: [address] [facility], [place], [place] [id number] MD Miki Peres MD Phone: [phone]
--- NOTE | 2024-08-06 | DI.RAD.S_ITS ---
PROCEDURE: XR ABDOMEN 1V INDICATIONS: BEL TECHNIQUE: 3 images from an intraoperative cholangiogram COMPARISON: None. FINDINGS: , and intrahepatic bile ducts have appropriate caliber without filling defect to suggest retained calculi. IMPRESSION: Unremarkable intraoperative cholangiogram Approved by: German Holman M.D. on 08/06/2024 at 16:25
[2024-08-06] MEDS: MORPHINE 2 MG/ML INJ IV (09:00)
[2024-08-06] MEDS: LACTATED RINGERS 1,000 ML 42 ML IV (13:13)
[2024-08-06] MEDS: BUPIVACAINE 0.5% W/ EPI (PF) 30 ML VIAL INJ (14:18)
[2024-08-06] MEDS: iopamidoL 30 ML VIAL INJ (14:33)
--- NOTE | 2024-08-06 14:43 | SUR.OPER ---
FLURO TIME 5 SEC
--- NOTE | 2024-08-06 15:17 | P.OP_ITS ---
Operative Date/Time/Diagnoses Date of procedure: 08/06/24 Time of procedure: 15:17 Pre-op diagnosis: acute cholecystitis Post-op diagnosis: same Procedure & Clinicians Procedure: Laparoscopic cholecystectomy with cholangiography Same procedure as scheduled: Yes Surgeon: Porter Barton Click Yes if Unassisted: Yes Anesthesia Type: General Operative Notes Findings: Normal intraoperative cholangiography, hydropic bile in the gallbladder Closure Type: primary Specimen(s): other (Gallbladder and contents) Estimated Blood Loss (mL): 25 Blood products transfused: none Procedure in detail: Patient was brought to the operating room suite. General anesthesia was induced. Patient was placed in the supine position with the arms out. Abdomen was prepped and draped in normal fashion. Time-out was performed. A total of 30 mL of 0.5% Marcaine with epinephrine were infiltrated in all trocar sites. 5 mm optical trocar was placed in the left upper quadrant pneumoperitoneum was achieved. The abdomen was inspected with the only abnormality being a distended inflamed gallbladder. 11 mm trocar was placed in the infraumbilical position. Two 5 mm trocar was placed in the right upper quadrant. The gallbladder was tense, thus over 60 mL of clear bile was aspirated from the gallbladder. The gallbladder was grasped retracted laterally and cephalad. Bovie electrocautery was used to open the medial and lateral peritoneal attachments of the gallbladder to obtain a critical view of a single cystic duct and artery. The artery was doubly clipped and divided. The duct was clipped at the junction of the gallbladder. A cystic ductotomy was made through which a catheter was placed and cholangiogram was performed which showed bilateral intrahepatic filling, prompt emptying into the duodenum, and no intrahepatic filling defects or strictures. This completed the cholangiography and catheter was removed. The cystic duct remnant was clipped 3 times. Bovie electrocautery was used to remove the gallbladder from the liver bed. The gallbladder was placed in Endo- Catch bag and brought out through the umbilical trocar. There was no spillage of bile or stones. Small amount of blood was suctioned free from the abdomen. Pneumoperitoneum was relieved after closing the umbilical trocar with an 0 Vicryl suture. Skin was closed with 4 Monocryl and Dermabond. Patient awoke with transport PACU in stable condition for anticipated same-day discharge. Complications: none Post-operative Condition: stable Disposition: PACU Plan for aftercare: home
--- NOTE | 2024-08-06 15:21 | P.DS_ITS ---
History of Present Illness History of Present Illness Date Patient Seen: 08/06/24 Time Patient Seen: 15:22 Chief complaint: Bad middle stomach pain Narrative: 33 yo WF presents with 12 hours of right upper quadrant pain. Her pain worsened to the point that she needed to take a ferry to the [place]. She does not recall any food out of the ordinary that started her pain. She denies jaundice or pancreatitis. She has a leukocytosis, CT scan showing stones and GB wall thickening. Iv pain medication in the ER improved her pain, somewhat. She has a toddler at home and had a . Discharge Providers Provider Date of admission: 08/05/24 20:47 Discharge Date: 08/06/24 Primary care physician: Jacki Mcgee MD Consults: 08/05/24 20:23 Consult to General Surgery Stat Comment: Consulting Provider: Porter Barton Reason for consultation: Acute cholecystitis Has provider been notified: Yes Discharge provider: Porter Barton MD Exam Vital Signs (past 8 hours): - 08/06/24 08:00 08/06/24 10:50 08/06/24 13:07 Temperature 97.6 F 97.7 F 97.1 F L Pulse Rate 93 H 87 106 H Respiratory Rate 16 16 20 Blood Pressure 127/78 143/75 H 137/87 Pulse Oximetry 97 97 97 Oxygen Delivery Method Room Air Oxygen Flow Rate 0 0 Oxygen Delivery Method Room Air Oxygen Flow Rate 0 Objective Labs 08/05/24 15:18 08/05/24 15:18 Labs: Laboratory Results - last 24 hr 08/05/24 15:18 WBC 13.1 H RBC 4.59 Hgb 13.8 Hct 41.0 MCV 89.3 MCH 30.1 MCHC 33.7 RDW 13.1 Plt Count 323 Neut % (Auto) 80.4 H Lymph % (Auto) 14.4 L [place] % (Auto) 4.0 Eos % (Auto) 0.4 L Baso % (Auto) 0.8 Neut # (Auto) 24338 H Lymph # (Auto) 1900 [place] # (Auto) 500 Eos # (Auto) 100 Baso # (Auto) 100 Sodium 136 L Potassium 3.7 Chloride 104 Carbon Dioxide 24 BUN 9 Creatinine 0.57 Estimated GFR > 60 BUN/Creatinine Ratio 15.8 Glucose 117 H Calcium 9.3 Total Bilirubin 0.7 AST 39 H ALT 38 H Alkaline Phosphatase 72 Total Protein 8.2 Albumin 4.5 Globulin 3.7 Albumin/Globulin Ratio 1.2 Lipase 60 Urine RBC 5-10/hpf H Urine WBC None seen Ur Squamous Epith Cells None seen Urine Bacteria None seen Urine Mucus 1+ H Ur Culture Indicated? Cult not indicated Vol Urine Centrifuged 10ml (spun) PFSH Medical History Depression Acute cholecystitis due to biliary calculus Preeclampsia Elevated BP without diagnosis of hypertension Surgical History History of third molar tooth extraction Family History Grandmother Age: 88 Bone loss Mother Age: 64 High cholesterol Mental health problem Social History marital status: household members: spouse lives independently: Yes housing: house pets and animals: Yes occupational status: employed Smoking Status: Never smoker alcohol intake: current Discharge Assessment & Plan Assessment and Plan Assessment: Acute cholecystitis Plan of Treatment: Underwent laparoscopic cholecystectomy with cholangiography on 08/06. Discharge home after surgery. Discharge Plan Discharge Plan Patient Disposition: Home Discharge orders & Medications Prescriptions: New tizanidine 4 mg capsule 4 mg PO Q8H MDD 3 PRN (Reason: muscle spasticity) Qty: 90 0RF Continued fluticasone propionate [Flonase Allergy Relief] 9.9 ML spray,suspension 1 spray Intranasal QDAY Qty: 1 levonorgestrel-ethinyl estrad [[place] (28)] 0.15-0.03 mg tablet 1 tab PO DAILY sertraline 100 mg tablet 100 mg PO BID Follow up/Referrals: Jacki Mcgee MD [Primary Care Provider] - Diet/Activity/Treatments Diet: Diet as Tolerated Skin/Wound/Dressing Care Report to your healthcare provider any signs of infection, such as:: chills, fever, night sweats, increased pain, unusual drainage and unusual redness Visit Report/Discharge Packet Instructions: DI for Laparoscopic Cholecystectomy Stand Alone Forms: Patient Portal/API, Stroke Signs & Symptoms, Surgery Discharge Discharge Data Primary Care Provider: Jacki Mcgee Attending Provider: Porter Barton Admit Date/Time: 08/05/24 20:47
[2024-08-06] MEDS: ACETAMINOPHEN IV 1,000 MG/100 ML VIAL 400 MG IV (15:26)
[2024-08-06] MEDS: SCOPOLAMINE 1 PATCH TOP (15:27)
== END 2024-08-06 18:07 | disposition home or self-care (01) ==
LOC: ED 17:57 → AC 21:02
PROVIDERS: Emergency Medicine; Admitting Provider Surgery; Emergency Provider Emergency Medicine; PCP Family Medicine; Referring Provider Emergency Medicine; Visit Provider Surgery
PROC: 0FT44ZZ Resection of Gallbladder, Percutaneous Endoscopic Approach (ICD-10-PCS; CPT 47563; principal; 2024-08-06 13:00)
DX: K80.42 Calculus of bile duct with acute cholecystitis without obstruction (principal)
CPT/HCPCS: 47563; 36415; 74018; 74177; 76000; 80053; 81003; 81015; 81025; 83690; 85025; 96365; 96367; 96375; 99284; G0378; J0134; J0690; J1100; J1171; J1885; J2250; J2270; J2405; J2543; J2704; J3010; J3490; Q9967